=== PATIENT | male | born 1945 | race Caucasian/White ===

== ENCOUNTER 2017-04-08 08:57 | Outpatient (CLI) | payer MEDICARE ==
--- NOTE | 2017-04-08 11:48 | MRI ---
CERVICAL SPINE MRI WITHOUT IV CONTRAST: History: 71-year-old male with neck pain and cervical radiculopathy. Technique: Multiplanar, multisequence MR examination of the cervical spine performed. FINDINGS: There are generalized disc desiccation changes and ligament and facet hypertrophic changes. C2-3: Mild central protrusion without significant stenosis. C3-4: Mild, approximately 0.3 cm anterolisthesis with some minimal disc osteophytosis and some mild central canal and lateral recess stenosis and at least moderate stenosis of the right smiley. C4-5: Diffuse disc osteophytosis with moderate central canal and lateral recess stenosis and moderat e to severe bilateral foraminal stenosis. C5-6: Moderate to severe central canal and lateral recess stenosis and severe bilateral foraminal st enosis. C6-7: Disc osteophytosis with mild central and right sided ventral thecal sac indention and mild rig ht lateral recess stenosis with moderate to severe bilateral foraminal stenosis. C7-T1: Unremarkable. No spinal cord mass or spinal cord compression. IMPRESSION: Extensive spondylosis with variable severity up to severe canal, lateral recess, and foraminal steno sis. 0.3 cm anterolisthesis of C3 on C4. No significant abnormal marrow signal to suggest a fracture or significant acute marrow edema. POS: YONI
== END 2017-04-08 08:58 | disposition home or self-care (01) ==
LOC: SCSMRI 08:57
PROVIDERS: ATTEND Nurse Practitioner Family
DX: M47.22 Other spondylosis with radiculopathy, cervical region (principal); M48.02 Spinal stenosis, cervical region; M43.12 Spondylolisthesis, cervical region
CPT/HCPCS: 72141

== ENCOUNTER 2023-02-05 13:35 | Outpatient (CLI) | payer MEDICARE | END 2023-02-05 13:36 | disposition home or self-care (01) | LOC: RAD 13:35 | PROVIDERS: ATTEND Physical Medicine & Rehabilitation | DX: M54.16 Radiculopathy, lumbar region (principal) | CPT/HCPCS: 71045 ==

== ENCOUNTER 2023-02-07 08:15 | Outpatient (CLI) | payer MEDICARE | END 2023-02-07 08:16 | disposition home or self-care (01) | LOC: MRI 08:15 | PROVIDERS: ATTEND Physical Medicine & Rehabilitation | DX: M47.26 Other spondylosis with radiculopathy, lumbar region (principal); M51.16 Intervertebral disc disorders with radiculopathy, lumbar region; M89.38 Hypertrophy of bone, other site | CPT/HCPCS: 72148 ==